=== PATIENT | male | born 1980 ===

== ENCOUNTER 2018-08-28 09:17 | Outpatient (CLI) | payer BC ==
--- NOTE | 2018-08-28 11:31 | Diagnostic Imaging Report ---
Indication: Abdominal pain and epigastric pain Technique: Marroquin-scale and duplex images of the upper abdomen were obtained. Doppler interrogation of the hepatic, renal, pancreatic vessels Comparison: none Findings: Gallbladder is unremarkable, without stones, wall thickening, nor pericholecystic fluid. Sonographic Thomas's sign is negative. Common bile duct measures for mm in diameter. No intrahepatic biliary ductal dilatation. Liver demonstrates normal echogenicity, no focal abnormality. Portal vein and hepatic veins are patent. Pancreas is unremarkable. Spleen is unremarkable. Left kidney measures 11.8 cm in length. Right kidney measures 11.4 cm length. Both kidneys demonstrate normal echogenicity. There is no hydronephrosis. There are bilateral renal cysts. 5 mm echogenic focus in the right upper pole renal sinus could represent a calyceal calculus . Abdominal aorta is partially obscured by bowel gas, visualized portions are non-aneurysmal . Impression: Negative for gallstones or dilated bile ducts Possible nonobstructive left intrarenal calyceal calculus Incidental finding bilateral renal cysts Note nonvisualization of portions of the abdominal aorta
== END 2018-08-28 11:11 | disposition home or self-care (01) ==
LOC: ULS 09:17
DX: R10.13 Epigastric pain (principal); N20.0 Calculus of kidney; N28.1 Cyst of kidney, acquired
CPT/HCPCS: 76700

== ENCOUNTER 2018-09-09 13:16 | Outpatient (CLI) | payer BC | END 2018-09-09 15:16 | disposition home or self-care (01) | LOC: LAB 13:16 | DX: K29.70 Gastritis, unspecified, without bleeding (principal); B96.81 Helicobacter pylori [H. pylori] as the cause of diseases classified elsewhere | CPT/HCPCS: 83013 ==